=== PATIENT | male | born 1935 | race Two or more races ===

== ENCOUNTER 2020-10-19 20:35 | Inpatient (IN) | payer OTHER ==
[~2020-10-19] VITALS: Ht 177.8 cm; Wt 95.8 kg
[2020-10-19 21:29] LABS: Basophils # (auto) 0.1 10 ^3/uL (0-0.2); Basophils % (auto) 0.8 % (0.0-2.0); Eosinophils # (auto) 0.1 10 ^3/uL (0-0.8); Eosinophils % (auto) 0.5 % (0.0-7.0); Hematocrit 39.7 % (41.0-53.0); Hemoglobin 13.4 g/dL (13.5-17.5); Lymphocytes # (auto) 1.5 10 ^3/uL (0.4-5.4); Lymphocytes % (auto) 13.4 % (10.0-50.0); Mean Corpuscular Hemoglobin 31.5 pg (28.0-32.0); Mean Corpuscular Hgb Conc. 33.7 g/dL (32.0-36.0); Mean Corpuscular Volume 93.6 fL (80.0-100.0); Monocytes # (auto) 0.8 10 ^3/uL (0-1.3); Monocytes % (auto) 7.1 % (0.0-12.0); Neutrophils # (auto) 8.6 10 ^3/uL (1.6-8.6); Neutrophils % (auto) 78.2 % (37.0-80.0); Platelet Count (auto) 159 10^3/uL (140-450); Red Blood Cells 4.24 10^6/uL (4.5-5.90); Red Cell Distribution Width 15.5 % (11.8-14.3)
[2020-10-19 21:56] LABS: INR 1.08 (0.9-1.15); Partial Thromboplastin Time 25.5 sec (23.0-31.2)
[2020-10-19 21:58] LABS: Albumin 3.4 g/dL (3.4-5.0); Calcium 8.2 mg/dL (8.5-10.1)
[2020-10-19 22:04] LABS: BUN/Creatinine Ratio 21.6; Bilirubin, Total 0.6 mg/dL (0.2-1.0); Total Protein 7.1 g/dL (6.4-8.2)
[2020-10-19 22:09] LABS: Potassium 5.9 mmol/L (3.5-5.1)
[2020-10-19] MEDS ORDERED: InsuLIN REG 1unit/0.01ml Soln (100units/ml) IV ONE (23:00)
[2020-10-19] MEDS ORDERED: ALBUTEROL SULF 2.5 MG/0.5ML(0.5%) NEB SOLN NEB ONE (23:00)
[2020-10-19] MEDS ORDERED: DEXTROSE (50%) 50ML SYRG IV ONE (23:00)
[2020-10-19] MEDS ORDERED: SODIUM BICARBONATE 8.4% INJ 50ML SYRINGE IV ONE (23:00)
[2020-10-20] MEDS ORDERED: FUROSEMIDE 40 MG/4 ML VIAL IV ONE
[2020-10-20] MEDS ORDERED: ONDANSETRON HCL 4 MG/2 ML VIAL IV PRN (07:00)
[2020-10-20] MEDS ORDERED: NITROGLYCERIN 0.4 MG SL TAB SL PRN ×2 (07:00)
[2020-10-20] MEDS ORDERED: ACETAMINOPHEN 325 MG TAB PO PRN (07:00)
[2020-10-20] MEDS: SODIUM CHLORIDE 0.9% 1,000 ML IV SCH (07:18)
[2020-10-20 07:39] LABS: Calcium 8.5 mg/dL (8.5-10.1); Potassium 5.4 mmol/L (3.5-5.1)
[2020-10-20] MEDS: CARVEDILOL 3.125 MG TAB PO SCH ×2 (09:59→22:31)
[2020-10-20] MEDS: CLOPIDOGREL BISULFATE 75 MG TAB PO SCH (09:59)
[2020-10-20] MEDS: DOCUSATE SOD 100 MG CAP PO SCH (10:00)
[2020-10-20] MEDS ORDERED: ENOXAPARIN SOD 60 MG/0.6 ML SYRINGE SC SCH (10:00)
[2020-10-20] MEDS ORDERED: LISINOPRIL 5 MG TAB PO SCH (10:00)
[2020-10-20] MEDS: ASPirin 81 mg TAB PO SCH (10:01)
[2020-10-20 12:38] VITALS: BP 150/80
[2020-10-20] MEDS ORDERED: LISI-646 PO (13:15)
[2020-10-20] MEDS ORDERED: ASPI-543 PO (13:15)
[2020-10-20] MEDS ORDERED: METO-159 PO (13:15)
[2020-10-20] MEDS ORDERED: INS7030I SC (13:15)
[2020-10-20] MEDS ORDERED: SIMV-8 PO (13:15)
[2020-10-20] MEDS: PANTOPRAZOLE 40 MG TAB PO SCH (13:30)
[2020-10-20] MEDS ORDERED: DEXTROSE (50%) 50ML SYRG IV PRN (13:30)
[2020-10-20] MEDS ORDERED: ENOXAPARIN SOD 60 MG/0.6 ML SYRINGE SC ONE (13:30)
[2020-10-20 14:35] LABS: Basophils # (auto) 0.1 10 ^3/uL (0-0.2); Basophils % (auto) 0.8 % (0.0-2.0); Eosinophils # (auto) 0 10 ^3/uL (0-0.8); Eosinophils % (auto) 0.2 % (0.0-7.0); Hematocrit 35.6 % (41.0-53.0); Lymphocytes % (auto) 9.5 % (10.0-50.0); Mean Corpuscular Hemoglobin 31.3 pg (28.0-32.0); Mean Corpuscular Hgb Conc. 33.8 g/dL (32.0-36.0); Mean Corpuscular Volume 92.5 fL (80.0-100.0); Monocytes # (auto) 0.7 10 ^3/uL (0-1.3); Monocytes % (auto) 7.1 % (0.0-12.0); Neutrophils # (auto) 8.3 10 ^3/uL (1.6-8.6); Neutrophils % (auto) 82.4 % (37.0-80.0); Platelet Count (auto) 136 10^3/uL (140-450); Red Blood Cells 3.85 10^6/uL (4.5-5.90); Red Cell Distribution Width 15.3 % (11.8-14.3)
[2020-10-20 16:00] VITALS: BP 137/71
[2020-10-20] MEDS: ACCU-CHEK COMFORT CURVE STRIP VI SCH ×2 (16:52→20:09)
[2020-10-20] MEDS: FUROSEMIDE 40 MG/4 ML VIAL IV SCH (16:53)
[2020-10-20] MEDS ORDERED: OPTISON 3ml Vial for INJ IV ONE (17:15)
[2020-10-20] MEDS: TAMSULOSIN HYDROCHLORIDE 0.4 MG CAP PO SCH (18:54)
[2020-10-20] MEDS: InsuLIN REG 1unit/0.01ml Soln (100units/ml) SC SCH ×2 (18:55→20:10)
[2020-10-20 22:00] VITALS: BP 142/79
[2020-10-20] MEDS ORDERED: ATORVASTATIN 20 MG TAB PO SCH (22:00)
[2020-10-20] MEDS: ENOXAPARIN SOD 120 MG/0.8 ML SYRINGE SC SCH (22:00)
[2020-10-21] MEDS: ACCU-CHEK COMFORT CURVE STRIP VI SCH ×6 (00:11→20:40)
[2020-10-21] MEDS: InsuLIN REG 1unit/0.01ml Soln (100units/ml) SC SCH ×6 (00:14→20:40)
[2020-10-21 01:04] LABS: Urine Bacteria FEW /hpf (None Seen); Urine Blood 2+ /uL (Negative); Urine Hyaline Cast FEW /lpf (0 - 2); Urine Specific Gravity 1.012 (1.001-1.035); Urine WBC 8 /hpf (0 - 3)
[2020-10-21 01:56] LABS: Protein, Urine 10.5 mg/dL (0.0-11.9)
[2020-10-21 05:12] VITALS: BP 127/72
[2020-10-21] MEDS: SODIUM CHLORIDE 0.9% 1,000 ML IV SCH (06:02)
[2020-10-21] MEDS: FUROSEMIDE 40 MG/4 ML VIAL IV SCH ×2 (06:02→17:17)
[2020-10-21 07:09] LABS: Basophils # (auto) 0 10 ^3/uL (0-0.2); Basophils % (auto) 0.4 % (0.0-2.0); Eosinophils # (auto) 0.1 10 ^3/uL (0-0.8); Eosinophils % (auto) 1.4 % (0.0-7.0); Hematocrit 35.4 % (41.0-53.0); Hemoglobin 11.9 g/dL (13.5-17.5); Lymphocytes # (auto) 1.2 10 ^3/uL (0.4-5.4); Lymphocytes % (auto) 13.2 % (10.0-50.0); Mean Corpuscular Hemoglobin 31.1 pg (28.0-32.0); Mean Corpuscular Hgb Conc. 33.7 g/dL (32.0-36.0); Mean Corpuscular Volume 92.3 fL (80.0-100.0); Monocytes # (auto) 0.9 10 ^3/uL (0-1.3); Monocytes % (auto) 9.9 % (0.0-12.0); Neutrophils # (auto) 6.6 10 ^3/uL (1.6-8.6); Neutrophils % (auto) 75.1 % (37.0-80.0); Platelet Count (auto) 120 10^3/uL (140-450); Red Blood Cells 3.83 10^6/uL (4.5-5.90); Red Cell Distribution Width 14.8 % (11.8-14.3); White Blood Cell 8.8 10^3/uL (4.4-10.8)
[2020-10-21 07:50] LABS: Potassium 5.1 mmol/L (3.5-5.1)
[2020-10-21 07:55] LABS: BUN/Creatinine Ratio 24.8; Calcium 8.7 mg/dL (8.5-10.1)
[2020-10-21 08:00] VITALS: BP 134/75
[2020-10-21] MEDS: ASPirin 81 mg TAB PO SCH (10:00)
[2020-10-21] MEDS: ENOXAPARIN SOD 120 MG/0.8 ML SYRINGE SC SCH ×2 (10:00→22:00)
[2020-10-21] MEDS: INSULIN LANTUS (GLARGINE) 1 /0.01ml (100units/ml) SC SCH (10:00)
[2020-10-21] MEDS: FINASTERIDE 5 MG TAB PO SCH (10:00)
[2020-10-21] MEDS: PANTOPRAZOLE 40 MG TAB PO SCH (10:00)
[2020-10-21] MEDS: DOCUSATE SOD 100 MG CAP PO SCH (10:00)
[2020-10-21] MEDS: CARVEDILOL 3.125 MG TAB PO SCH ×2 (10:00→21:55)
[2020-10-21] MEDS ORDERED: MIDAZOLAM HCL 1MG/1ML-2 ML VIAL ONE (12:17)
[2020-10-21] MEDS ORDERED: fentaNYL CITRATE 100 MCG/2 ML VL ONE (12:17)
[2020-10-21] MEDS ORDERED: LIDOCAINE 2%HCL (LOCAL ANESTH.) INJ 20ML MDV ONE (12:18)
[2020-10-21] MEDS ORDERED: IOHEXOL 350 MG/ML 100ML IJ ONE (12:33)
[2020-10-21] MEDS ORDERED: IODIXANOL 320MG/ML 100ML BTL IV ONE (12:37)
[2020-10-21] MEDS ORDERED: ERGOCALCIFEROL 50,000 UNIT(1.25MG) CAP PO SCH (13:30)
[2020-10-21] MEDS ORDERED: LEVO50TA7 PO (15:22)
[2020-10-21] MEDS ORDERED: METO1TAB9 PO (15:26)
[2020-10-21 15:49] VITALS: BP 144/63
[2020-10-21] MEDS: TAMSULOSIN HYDROCHLORIDE 0.4 MG CAP PO SCH (17:18)
[2020-10-21 22:22] VITALS: BP 123/64
[2020-10-22] MEDS: ACCU-CHEK COMFORT CURVE STRIP VI SCH ×6 (00:02→20:21)
[2020-10-22] MEDS: InsuLIN REG 1unit/0.01ml Soln (100units/ml) SC SCH ×6 (00:04→20:27)
[2020-10-22 05:48] VITALS: BP 130/75
[2020-10-22] MEDS: SODIUM CHLORIDE 0.9% 1,000 ML IV SCH (06:51)
[2020-10-22 07:26] LABS: Basophils # (auto) 0.1 10 ^3/uL (0-0.2); Basophils % (auto) 1.1 % (0.0-2.0); Eosinophils # (auto) 0.1 10 ^3/uL (0-0.8); Eosinophils % (auto) 1.4 % (0.0-7.0); Hematocrit 34.7 % (41.0-53.0); Hemoglobin 11.8 g/dL (13.5-17.5); Lymphocytes # (auto) 1.3 10 ^3/uL (0.4-5.4); Lymphocytes % (auto) 14.7 % (10.0-50.0); Mean Corpuscular Hgb Conc. 33.9 g/dL (32.0-36.0); Mean Corpuscular Volume 91.2 fL (80.0-100.0); Monocytes # (auto) 0.9 10 ^3/uL (0-1.3); Monocytes % (auto) 10.8 % (0.0-12.0); Neutrophils # (auto) 6.3 10 ^3/uL (1.6-8.6); Nucleated Red Blood Cells % 0.1 %; Platelet Count (auto) 134 10^3/uL (140-450); Red Blood Cells 3.81 10^6/uL (4.5-5.90); Red Cell Distribution Width 14.7 % (11.8-14.3); White Blood Cell 8.7 10^3/uL (4.4-10.8)
[2020-10-22 07:40] LABS: Potassium 4.4 mmol/L (3.5-5.1)
[2020-10-22 07:48] LABS: BUN/Creatinine Ratio 27.1; Calcium 8.7 mg/dL (8.5-10.1)
[2020-10-22 09:00] VITALS: BP 127/64
[2020-10-22] MEDS: DOCUSATE SOD 100 MG CAP PO SCH (10:00)
[2020-10-22] MEDS: ENOXAPARIN SOD 120 MG/0.8 ML SYRINGE SC SCH (10:00)
[2020-10-22] MEDS: CLOPIDOGREL BISULFATE 75 MG TAB PO SCH (10:00)
[2020-10-22] MEDS: INSULIN LANTUS (GLARGINE) 1 /0.01ml (100units/ml) SC SCH ×2 (10:00→23:20)
[2020-10-22] MEDS: cefTRIAXone 1GM/50ML D5W 50 ML IV SCH (11:14)
[2020-10-22] MEDS: PANTOPRAZOLE 40 MG TAB PO SCH (11:16)
[2020-10-22] MEDS: ASPirin 81 mg TAB PO SCH (11:16)
[2020-10-22] MEDS: CARVEDILOL 3.125 MG TAB PO SCH ×2 (11:16→22:02)
[2020-10-22] MEDS: FUROSEMIDE 40 MG/4 ML VIAL IV SCH (11:16)
[2020-10-22] MEDS: FINASTERIDE 5 MG TAB PO SCH (11:17)
[2020-10-22 13:00] VITALS: BP 140/86
[2020-10-22 17:00] VITALS: BP 131/70
[2020-10-22] MEDS: TAMSULOSIN HYDROCHLORIDE 0.4 MG CAP PO SCH (17:22)
[2020-10-22 22:00] VITALS: BP 106/58
[2020-10-23] MEDS: InsuLIN REG 1unit/0.01ml Soln (100units/ml) SC SCH ×5 (00:03→17:04)
[2020-10-23] MEDS: ACCU-CHEK COMFORT CURVE STRIP VI SCH ×5 (04:16→16:00)
[2020-10-23 05:00] VITALS: BP 110/59
[2020-10-23 05:44] LABS: Basophils # (auto) 0.1 10 ^3/uL (0-0.2); Basophils % (auto) 0.9 % (0.0-2.0); Eosinophils # (auto) 0.2 10 ^3/uL (0-0.8); Eosinophils % (auto) 2.3 % (0.0-7.0); Hematocrit 36.5 % (41.0-53.0); Hemoglobin 12.2 g/dL (13.5-17.5); Lymphocytes # (auto) 1.1 10 ^3/uL (0.4-5.4); Lymphocytes % (auto) 14.8 % (10.0-50.0); Mean Corpuscular Hemoglobin 30.7 pg (28.0-32.0); Mean Corpuscular Hgb Conc. 33.5 g/dL (32.0-36.0); Mean Corpuscular Volume 91.8 fL (80.0-100.0); Monocytes # (auto) 0.8 10 ^3/uL (0-1.3); Monocytes % (auto) 10.5 % (0.0-12.0); Neutrophils # (auto) 5.5 10 ^3/uL (1.6-8.6); Neutrophils % (auto) 71.5 % (37.0-80.0); Platelet Count (auto) 124 10^3/uL (140-450); Red Blood Cells 3.97 10^6/uL (4.5-5.90); Red Cell Distribution Width 14.8 % (11.8-14.3); White Blood Cell 7.7 10^3/uL (4.4-10.8)
[2020-10-23 06:19] LABS: BUN/Creatinine Ratio 29.6; Calcium 8.4 mg/dL (8.5-10.1)
[2020-10-23] MEDS: SODIUM CHLORIDE 0.9% 1,000 ML IV SCH (07:00)
[2020-10-23 08:00] VITALS: BP 134/62
[2020-10-23] MEDS: cefTRIAXone 1GM/50ML D5W 50 ML IV SCH (08:43)
[2020-10-23 09:00] VITALS: BP 134/62
[2020-10-23] MEDS: DOCUSATE SOD 100 MG CAP PO SCH (10:00)
[2020-10-23] MEDS: ASPirin 81 mg TAB PO SCH (10:31)
[2020-10-23] MEDS: PANTOPRAZOLE 40 MG TAB PO SCH (10:31)
[2020-10-23] MEDS: CARVEDILOL 3.125 MG TAB PO SCH (10:32)
[2020-10-23] MEDS: FINASTERIDE 5 MG TAB PO SCH (10:33)
[2020-10-23] MEDS: FUROSEMIDE 40 MG/4 ML VIAL IV SCH (10:33)
[2020-10-23] MEDS: INSULIN LANTUS (GLARGINE) 1 /0.01ml (100units/ml) SC SCH (11:40)
[2020-10-23 13:00] VITALS: BP 151/66
[2020-10-23] MEDS ORDERED: TAM04C PO (15:17)
[2020-10-23] MEDS ORDERED: ASPI-543 PO (15:17)
[2020-10-23] MEDS ORDERED: FIN5T PO (15:17)
[2020-10-23] MEDS ORDERED: CAR3125T PO (15:17)
[2020-10-23] MEDS ORDERED: LEVO500T31 PO (15:18)
[2020-10-23 16:54] VITALS: BP 104/59
[2020-10-23 17:00] VITALS: BP 104/59
[2020-10-23] MEDS: TAMSULOSIN HYDROCHLORIDE 0.4 MG CAP PO SCH (17:06)
== END 2020-10-23 21:00 | disposition home health service (06) | DRG 280 ==
LOC: EDBD 20:35 → ER 20:39 → TELE 20:40 → ER 10-20 05:26 → TELE-WESTW 10-20 11:29
PROVIDERS: ADMIT Hospitalist; ATTEND Internal Medicine
PROC: BT1FYZZ Fluoroscopy of Left Kidney, Ureter and Bladder using Other Contrast (ICD-10-PCS; principal; 2020-10-21)
PROC: 0T9430Z Drainage of Left Kidney Pelvis with Drainage Device, Percutaneous Approach (ICD-10-PCS; 2020-10-21)
DX: I21.4 Non-ST elevation (NSTEMI) myocardial infarction (principal); J96.01 Acute respiratory failure with hypoxia; I50.43 Acute on chronic combined systolic (congestive) and diastolic (congestive) heart failure; I13.0 Hypertensive heart and chronic kidney disease with heart failure and stage 1 through stage 4 chronic kidney disease, or unspecified chronic kidney disease; N13.2 Hydronephrosis with renal and ureteral calculous obstruction; J98.11 Atelectasis; N17.9 Acute kidney failure, unspecified; J91.8 Pleural effusion in other conditions classified elsewhere; E87.5 Hyperkalemia; E66.01 Morbid (severe) obesity due to excess calories; Z88.6 Allergy status to analgesic agent; Z88.8 Allergy status to other drugs, medicaments and biological substances; Z20.822 Contact with and (suspected) exposure to COVID-19; E11.22 Type 2 diabetes mellitus with diabetic chronic kidney disease; I35.0 Nonrheumatic aortic (valve) stenosis; I70.0 Atherosclerosis of aorta; K76.0 Fatty (change of) liver, not elsewhere classified; K59.00 Constipation, unspecified; N40.0 Benign prostatic hyperplasia without lower urinary tract symptoms; N18.30 Chronic kidney disease, stage 3 unspecified; Z68.30 Body mass index [BMI] 30.0-30.9, adult; K57.90 Diverticulosis of intestine, part unspecified, without perforation or abscess without bleeding
CPT/HCPCS: 36415; 50432; 71045; 71250; 74176; 74425; 76775; 76942; 80048; 80053; 81001; 82306; 82570; 82962; 83036; 83735; 83880; 83970; 84100; 84156; 84300; 84443; 84484; 85025; 85610; 85730; 87426; 93005; 93306; 93970; 94640; 96361; 96372; 96374; 96375; 99152; 99153; C1729; C1769; G0378; J0696; J1815; J2250; Q9956; Q9967

== ENCOUNTER 2021-02-03 08:01 | Emergency (ER) | payer OTHER ==
[~2021-02-03] VITALS: Ht 175.3 cm; Wt 90.7 kg
[~2021-02-03 08:01] MED LIST: ASPI-543 PO; CAR3125T PO; FIN5T PO; INS7030I SC; LEVO500T31 PO; LEVO50TA7 PO; TAM04C PO
[2021-02-03 08:50] VITALS: BP 164/90
== END 2021-02-03 09:40 | disposition home or self-care (01) ==
LOC: ER 08:01
DX: T83.032A Leakage of nephrostomy catheter, initial encounter (principal); I10 Essential (primary) hypertension; E11.9 Type 2 diabetes mellitus without complications; Z79.82 Long term (current) use of aspirin; Z79.899 Other long term (current) drug therapy; Z88.5 Allergy status to narcotic agent; Z88.8 Allergy status to other drugs, medicaments and biological substances

== ENCOUNTER 2021-03-06 12:21 | Emergency (ER) | payer OTHER ==
[~2021-03-06] VITALS: Ht 175.3 cm; Wt 90.7 kg
[2021-03-06 14:50] LABS: Basophils # (auto) 0.1 10 ^3/uL (0-0.2); Basophils % (auto) 0.6 % (0.0-2.0); Eosinophils # (auto) 0.2 10 ^3/uL (0-0.8); Eosinophils % (auto) 1.7 % (0.0-7.0); Hemoglobin 14.3 g/dL (13.5-17.5); Lymphocytes % (auto) 20.5 % (10.0-50.0); Mean Corpuscular Hemoglobin 30.1 pg (28.0-32.0); Mean Corpuscular Hgb Conc. 34.1 g/dL (32.0-36.0); Mean Corpuscular Volume 88.3 fL (80.0-100.0); Monocytes # (auto) 0.8 10 ^3/uL (0-1.3); Monocytes % (auto) 8.3 % (0.0-12.0); Neutrophils # (auto) 6.6 10 ^3/uL (1.6-8.6); Neutrophils % (auto) 68.9 % (37.0-80.0); Red Blood Cells 4.76 10^6/uL (4.5-5.90); Red Cell Distribution Width 15.1 % (11.8-14.3); White Blood Cell 9.6 10^3/uL (4.4-10.8)
[2021-03-06 15:03] LABS: Urine Bacteria FEW /hpf (None Seen); Urine Blood 1+ /uL (Negative); Urine Specific Gravity 1.008 (1.001-1.035); Urine WBC 48 /hpf (0 - 3)
[2021-03-06 15:08] LABS: Albumin 3.4 g/dL (3.4-5.0); Calcium 8.6 mg/dL (8.5-10.1)
[2021-03-06] MEDS ORDERED: IOHEXOL 300 MG/ML 100ML BOTTLE IJ ONE (15:09)
[2021-03-06] MEDS ORDERED: LIDOCAINE 2%HCL (LOCAL ANESTH.) INJ 20ML MDV ONE (15:09)
[2021-03-06 15:11] LABS: BUN/Creatinine Ratio 21.9; Bilirubin, Total 0.7 mg/dL (0.2-1.0); Total Protein 7.5 g/dL (6.4-8.2)
[2021-03-06 17:13] VITALS: BP 172/87
== END 2021-03-06 17:31 | disposition home or self-care (01) ==
LOC: ER 12:21
DX: T83.032A Leakage of nephrostomy catheter, initial encounter (principal); N39.0 Urinary tract infection, site not specified; I11.0 Hypertensive heart disease with heart failure; I50.9 Heart failure, unspecified; E11.9 Type 2 diabetes mellitus without complications; E78.5 Hyperlipidemia, unspecified; Z79.82 Long term (current) use of aspirin; Z79.4 Long term (current) use of insulin; Z79.899 Other long term (current) drug therapy; Z79.2 Long term (current) use of antibiotics; Z88.5 Allergy status to narcotic agent; Z88.8 Allergy status to other drugs, medicaments and biological substances
CPT/HCPCS: 36415; 74176; 80053; 81001; 83690; 85025; 85049; 93005; 99285; C1729; C1769; Q9967; 74425